=== PATIENT | female | born 1955 | race Caucasian/White ===

== ENCOUNTER 2022-01-03 12:58 | Emergency (ER) | payer OTHER, MEDICARE, SELFPAY ==
--- NOTE | ~2022-01-03 | XR_ITS ---
EXAMINATION: XR cervical spine 4-5V DATE: 01/03/2022 13:38 INDICATION: Neck pain. TECHNIQUE: 5 views of cervical spine were obtained. COMPARISON: None. FINDINGS: There is 2 mm retrolisthesis of C5 on C6. Vertebral body heights are normal. There is sever lizzie decreased disc height at C5-C6 and mildly decreased disc height at C6-C7. At C5-C6, there is kalani re bilateral uncovertebral joint osteoarthritis. There is multilevel mild facet joint osteoarthritis. There is mild central canal stenosis at C5-C6 and C6-C7. No prevertebral soft tissue swelling. There is mild scarring at the lung apices. IMPRESSION: 1. Severe cervical spondylosis. Reviewed, dictated and finalized at location A.
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
[2022-01-03 13:09] VITALS: BP 123/67; PULSE 81; RESP 16; TEMP 37.2; O2SAT 100
== END 2022-01-03 14:14 | disposition home or self-care (01) ==
PROVIDERS: Emergency Provider Nurse Practitioner; PCP Internal Medicine
DX: M54.2 Cervicalgia (principal); M25.512 Pain in left shoulder; M25.511 Pain in right shoulder; V43.52XA Car driver injured in collision with other type car in traffic accident, initial encounter; Z85.820 Personal history of malignant melanoma of skin
CPT/HCPCS: 72050; 99213; G0463

== ENCOUNTER 2024-07-04 12:09 | Outpatient (CLI) | payer MEDICARE, SELFPAY ==
--- NOTE | ~2024-07-04 | XR_ITS ---
EXAMINATION: XR chest 2V DATE: 07/04/2024 12:18 INDICATION: Chest congestion and 2 weeks of worsening cough TECHNIQUE: PA and lateral views of the chest were obtained. COMPARISON: Chest radiograph dated 10/31/2007 FINDINGS: Moderate biapical pleural-parenchymal scarring. Mild hyperexpansion lungs with increased retrosternal clear space. No focal airspace opacities, pulmonary edema, pleural effusion or pneumothorax. The car diomediastinal silhouette is normal. Mild S-shaped curvature of the thoracic spine with mild spondylo sis. IMPRESSION: 1. Mild hyperexpansion lungs suggestive but not diagnostic of COPD. 2. Moderate biapical pleural-parenchymal scarring. No acute cardiopulmonary disease. Reviewed, dictated and finalized at location A. MAINTENANCE IMPRESSION: 1. Mild hyperexpansion lungs suggestive but not diagnostic of COPD. 2. Moderate biapical pleural-parenchymal scarring. No acute cardiopulmonary dis ease.
== END 2024-07-04 12:10 | disposition home or self-care (01) ==
PROVIDERS: PCP Clinical Nurse Specialist; Visit Provider Clinical Nurse Specialist
DX: J92.9 Pleural plaque without asbestos (principal); J98.4 Other disorders of lung; Z87.39 Personal history of other diseases of the musculoskeletal system and connective tissue
CPT/HCPCS: 71046

== ENCOUNTER 2024-07-14 12:31 | Emergency (ER) | payer MEDICARE, SELFPAY ==
--- NOTE | 2024-07-14 12:31 | ED.URI ---
HPI - URI/Sore Throat General Chief Complaint: Upper Respiratory Infection Stated Complaint: COUGH/TIGHT CHEST/SOB Time Seen by Provider: 07/14/24 12:31 Source: patient Mode of arrival: ambulatory Limitations: no limitations History of Present Illness HPI Narrative: patient is a 68-year-old female who presents with cough, chest congestion and shortness of breath with exertion. Patient was seen 07/04 and was given Augmentin , albuterol and Flonase. patient states symptoms are not improving even after full course of antibiotics. States she was unable to use the inhaler because it made her feel worse. states she has been taking the Flonase but it is also not working. Related Data Home Medications ?Medication ?Instructions ?Recorded ?Confirmed ?Last Taken ?Type multivitamin 1 tablet PO DAILY 05/07/20 07/14/24 Unknown History hydroxychloroquine 200 mg tablet 200 mg PO DAILY 07/04/24 07/14/24 Unknown History (Plaquenil) Allergies Allergy/AdvReac Type Severity Reaction Status Date / Time Penicillins Allergy Headache Verified 07/14/24 12:40 Review of Systems Review of Systems: All systems reviewed & are unremarkable except as noted in HPI and below Constitutional: Constitutional: Denies chills, Denies fatigue, Denies fever(s), Denies headache(s), Denies malaise and Denies weakness Eyes: Eyes: Denies blurry vision, Denies itchy eyes and Denies loss of vision ENT: Denies otalgia, Denies headache(s), Reports nasal congestion, Denies sinus pain and Denies sore throat Cardiovascular: Cardiovascular: Denies chest pain, Denies irregular heart rhythm and Denies dyspnea Respiratory: Respiratory: Reports chest congestion, Reports cough and Denies dyspnea Gastrointestinal: Gastrointestinal: Denies abdominal pain, Denies diarrhea, Denies nausea and Denies vomiting Musculoskeletal: Musculoskeletal: Denies back pain, Denies myalgias and Denies arthralgias Integumentary/Breasts: Skin/Breast: Denies pruritus and Denies rash Neurologic: Denies headache(s), Denies loss of vision and Denies weakness Psychiatric: Psychiatric: Reports no additional psychiatric complaints Endocrine: Endocrine: Denies fatigue Allergic/Immunologic: Allergic/Immunologic: Denies itchy eyes PMFSH Past Medical History Medical History Vertigo Peripheral neuropathy Allergies Depression with anxiety JAMIE positive Melanoma Anxiety Surgical History Surgical History History of removal of skin mole History of eye surgery History of hysterectomy History of skin surgery melanoma removal 1995, 2000 Family History Family History Grandparent Family history of cardiovascular disease Social History Social History Social History: caffeine-coffee 2 cups daily Smoking status: Never smoker Alcohol intake: never Substance use: never Substance use type: does not use Do You Feel Safe in your Home?: Yes Lack of Transportation: No Lack of Food: Never True Current Housing: I Have Housing Concerned About Future Housing: No Difficulty Paying Gas/Electric Bills: No Difficulty Paying for Meds: No Currently Unemployed: No Education: High School Diploma/GED Difficulty w/ Childcare or Family Care: Decline to Answer Comments At time of signature, agree with nursing past medical, surgical, social and family history. There is no relevant family history pertinent to the presenting complaint. Exam Const: General: cooperative, healthy appearing, comfortable, no acute distress and well nourished Nutritional Appearance: well nourished Orientation/consciousness: patient oriented x3 Limitations: no limitations HENMT: Head: normal to inspection, normocephalic and atraumatic Ears: hearing grossly normal bilaterally, external ears normal, TM's normal bilaterally, EAC's normal and no periauricular adenopathy Face/Nose/Sinus: Normal external nose present, Abnormal mucous membranes and turbinates present erythematous bilateral and diffuse, normal facial exam, sinuses nontender and face symmetric Face and sinus: normal facial exam, sinuses nontender and face symmetric Mouth: Yes Normal oral and palatal mucosa present, Yes lip normal, Yes tongue normal, Yes Normal salivary glands and ducts present, Yes oropharynx normal and Yes moist mucous membranes Teeth and gingiva: dentition normal Throat: posterior oropharynx normal, tonsils normal and uvula midline Eyes: General: appearance normal, both eyes and all related structures Alignment and Position: alignment normal and position normal Periorbital: periorbital findings normal Eyelids: eyelids normal Pupils: Equal, round and reactive pupils present Neck: Neck: normal visual inspection, full ROM, no lymphadenopathy and supple Chest: Chest palpation & inspection: normal inspection of the chest and normal palpation of entire chest wall Resp: Effort & Inspection: normal respiratory effort and able to speak in complete sentences Auscultation: clear to auscultation bilaterally, no crackles, no rales, no rhonchi and no wheezes Cardio: Rate: regular rate Rhythm: regular rhythm Heart sounds: S1 normal heart sound present and S2 normal heart sound present GI: Inspection: normal to inspection Skin: General skin exam: normal color and no rashes or lesions noted Neuro: General: patient oriented x3 and moves all extremities Cranial nerves: Yes Equal, round and reactive pupils present Speech: normal speech Gait exam (Neuro): Normal gait present Extrem: General: normal to inspection, full ROM and no edema Psych: Appearance: grossly normal and well kempt Mental Status: mental status grossly normal Speech and movement: Normal speech and movement present Affect: normal affect Attitude: cooperative Thought process: Normal thought process present Course Course Emergency Course: Discharge instructions reviewed with patient, as well as provided in writing per nursing staff. The instructions also include specific and strict return/GO TO THE ER as well as f/u information. All questions have been answered, and the patient deny any further questions with discharge and discharge plan. Portions of this record may have been created with voice recognition software Level of Care: Express Care Visit Vital Signs Vital signs: Vital Signs Temperature 36.9 C 07/14/24 12:48 Pulse Rate 86 07/14/24 12:48 Respiratory Rate 16 07/14/24 12:48 Blood Pressure 148/86 H 07/14/24 12:48 Pulse Oximetry 100 07/14/24 12:48 Temperature 36.9 C 07/14/24 12:48 Pulse Rate 86 07/14/24 12:48 Respiratory Rate 16 07/14/24 12:48 Blood Pressure 148/86 H 07/14/24 12:48 Pulse Oximetry 100 07/14/24 12:48 Reviewed MDM - URI/Sore Throat MDM Narrative Medical decision making narrative: Patient has pulmonary function test scheduled for . Pt well hydrated appearing, in no respiratory distress, hemodynamically stable. Recommend supportive care. The patient is stable at time of discharge the clinical impression was discussed and the patient was given the opportunity to ask questions, which were addressed as completely as possible given the information available at present. Anticipatory guidance and return to care precautions were discussed and the importance of primary care follow-up was stressed and encouraged. The patient voiced understanding of the plan, indications to return, and the need for follow-up. Differential diagnosis considered: Bronchitis, Mcfarland virus, strep pharyngitis, allergic rhinitis, upper respiratory tract infection, sinusitis, rhinosinusitis, nasopharyngitis. viral pharyngitis, otitis media, otitis externa, otitis effusion, foreign body, cerumen impaction, viral syndrome, and influenza.? Exam findings show no acute concerns or changes; patient is non-toxic appearing and is in no distress.? Patient is appropriate for outpatient treatment and follow-up.? Medical Records Attestation: I reviewed the patient's medical records. Imaging Data Radiologist's impression: CHEST RADIOGRAPH, PA AND LATERAL CLINICAL HISTORY: cough, SOB x 3 wks, non smoker . COMPARISON: 07/04/2024 TECHNIQUE: PA and lateral views of the chest. FINDINGS The cardiomediastinal silhouette is unremarkable. Biapical scarring, unchanged. Hyperinflation is also noted. The remainder of the lungs are clear. IMPRESSION: Biapical scarring, without focal infiltrate or effusion. Discharge Plan Discharge Clinical Impression: Bronchitis Patient Disposition: Home, Self-Care Condition: Stable Instructions: Acute Bronchitis (ED) Additional Instructions: Take steroids Per package instructions. Use Tessalon Perles as needed for cough. Other symptomatic treatments include: -Alternate Tylenol and Motrin per package directions for fever or pain: Tylenol 650-1000mg by mouth every 4-6 hours. Do not exceed 4000mg in 24 hours. Advil (Ibuprofen) 600 mg by mouth every 6 hours. Do not exceed 2400mg in 24 hours. 8 AM: Tylenol 11 AM: Ibuprofen 2 PM: Tylenol 5 PM: Ibuprofen 8 PM: Tylenol 11 PM: Ibuprofen 2 AM: Tylenol 5 AM: Ibuprofen -Antihistamine medication such as Benadryl at night and Zyrtec/Claritin/Ana during the day can help improve symptoms. -Use Flonase twice a day for 5 days then daily to help reduce the inflammation and dry up your sinuses. -You can also use Sudafed or Mucinex. Be sure to drink plenty of water with these medications at least 8 ounces with every dose and it is important to drink 8 to 10 glasses of water per day. Water is a natural decongestant -Eat and drink things that are easy to swallow, like tea or soup, or popsicles. -Oral rinses such as: Salt water gargles and/or may use topical anesthetic (eg. Chloraseptic spray) or lozenges to relieve dryness or throat pain). -Frequent hand washing or hand meal room hand is one of the best ways to prevent spread of infection. -Using a vaporizer or humidifier at night will also help thin secretions and help with coughing up phlegm. Call your Primary Care Doctor and make a follow-up appointment in 3 days. If your cough worsens, you develop a fever greater than 103, you develop shaking chills, a fast heartbeat, trouble breathing and/or feel you are are breathing much faster than usual, call your Primary Care Doctor or go to the ER. Your blood pressure was elevated above 120/80 today at Urgent Care. This puts you above the threshold for follow up visit with a primary care provider. High blood pressure does not usually cause any symptoms, however it may lead to kidney failure, stroke, heart disease just to name a few if untreated . Many people are anxious when seeing a provider or nurse. As a result, you are not diagnosed with hypertension at this time unless your blood pressure is persistently high at two office visits at least one week apart. Some things that can help lower blood pressure are lifestyle modifications, such as light exercise, decreased salt in diet, and weight loss. It is important to follow up with a PCP about this within 1 week. Patient Language: Wallisian Prescriptions: New benzonatate 100 mg capsule 100 mg PO BID PRN (Reason: cough) Qty: 14 0RF methylprednisolone [Medrol (Ugo)] 4 mg tablets,dose pack See Rx Instructions .ROUTE .COMPLEX Qty: 21 0RF Rx Instructions: orally per package directions No Action ibuprofen 600 mg tablet 600 mg PO QID PRN (Reason: pain) Qty: 30 0RF multivitamin Tablet 1 tablet PO DAILY hydroxychloroquine [Plaquenil] 200 mg tablet 200 mg PO DAILY fluticasone propionate [Flonase Allergy Relief] 50 mcg/actuation spray,suspension 1 spray intranasal Q12H Qty: 16 0RF Rx Instructions: administer into each nostril alprazolam 0.25 mg tablet 0.25 mg PO TID PRN (Reason: anxiety) Qty: 90 1RF Follow-up/Referrals: Michela Rivera WARP PLACER [Primary Care Provider] - 3 Days Time of Disposition: 13:35
[2024-07-14 12:48] VITALS: BP 148/86; PULSE 86; RESP 16; TEMP 36.9; O2SAT 100
== END 2024-07-14 13:39 | disposition home or self-care (01) ==
PROVIDERS: Emergency Provider Nurse Practitioner Family; PCP Nurse Practitioner
DX: J40 Bronchitis, not specified as acute or chronic (principal); G62.9 Polyneuropathy, unspecified; F41.9 Anxiety disorder, unspecified; Z85.820 Personal history of malignant melanoma of skin
CPT/HCPCS: 71046; 99213; G0463

== ENCOUNTER 2024-07-20 14:35 | Outpatient (CLI) | payer MEDICARE, SELFPAY ==
--- OUTSIDE RECORDS SUMMARY | 2024-07-20 15:55 | XMS_ITS | Continuity of Care Document ---
Author Organization [facility] Address [address] [place] [address] Phone Care Team Providers Care Oil Burner Servicer And Installer Name Role Phone Marin Ruiz MD Unavailable Unavailable Allergies, Adverse Reactions, Alerts Substance Reaction Status Criticality No Known Drug Allergies Active No I nformation Medications Medication Instructions Dosage Effective Dates (start - stop) Status Comments alprazolam 0.5 mg tablet take 1 tablet by oral route 3 times every day 0.5 MG - No Longer Active Procedures Procedure Date X-ray exam knee, 1 or 2 views 8 X-ray exam both knees, standing 018 X-ray exam knee, 1 or 2 views 8 Independent Medical Examination [facility] Prolonged serv, w/o contact, 1st hr Scheduling Rescheduling Medical Testimon y Rende Advance Directives Directive Yes / No Effective Date File Name No Information Encounters Encounter Description Practice Location Reason(s) For Visit Diagnoses Date Provider Providers Copied on Encounter Independent Medical Examination [facility], [address], [id number], [place] tel:[phone] [facility] right knee (chief complaint) Pain in left kneePain in right knee 8 Sara Funes. [address], [place], [place], [id number], [place]. tel:[phone] [facility], [address], [place], [place], [id number], [place] tel:[phone] [facility] No Information 0 9 Administrative Provider. [address], [place], [place], [id number], [place]. tel:[phone] Referring Provider: Tono Guillaume, [address], [place], [address] . tel:[phone] Family History Family Member Type Diagnosis Age At Onset Problem (finding) Family history of cance r of colon Mother Problem (finding) Arthritis Father Problem (finding) Cardiovascular disease Payers Payer name Insurance type Covered alliance party ID Riccardo anthony(s) [employer] [id number] Social History Type Description Quantity Date Captured Comments Alcohol Use Details Unknown Caffeine Use Details Unknown Tobacco Use Status Current non-smoker 18 Smoking Status Never smoker Non-Smoking Tobacco Use Details : No Details Available : No Details Available Sex Female Vital Signs Date / Time: Height Weight BMI Pulse Rate Blood Pressure Temperature Respiratory Rate Body Surface Area Head Circumference Head Circ. Percentile Wt./Sundeep. Percentile BMI percentile Pulse Ox Inhaled Ox 11:14 AM 66.00 in 56.699 kg (125.00 lbs) 20.1 8 kg/m eter (2) Chief Complaint And Reason For Visit From encounter dated '07/21/2017 11:00'. right knee (chief complaint). Description: Kaela presents to the office for right knee complaints. Reason For Referral Reason For Referral No Information Plan Of Treatment Date Type Action Status Referral Ordered: X-ray exam knee, 1 or 2 views LT ordered Referral Ordered: X-ray exam both knees, standing ordered Referral Ordered: X-ray exam knee, 1 or 2 views RT ordered History Of Present Illness Encounter Date Complaint History Of Prese nt Illness right knee Kaela presents to the office for right knee complaints. Functional Status Date Functional Assessmen t No Information Instructions Date Instruction Additional Infor mation No Information Assessments Type Assessment Date assessment Pain in left knee assessment Pain in right knee Patient Care Teams Name Effective Dates (start - stop) Status Members No Information
--- OUTSIDE RECORDS SUMMARY | 2024-07-20 15:55 | XMS_ITS | Continuity of Care Document ---
Author Organization [facility] Address [address] [place] [address] Phone Care Team Providers Care Fiscal Accountant Name Role Phone O Rena HUERTAS, Isreal Unavailable Unavai lable Allergies, Adverse Reactions, Alerts Substance Reaction Status Criticality No Known Allergies Active No Inform ation Medications Medication Instructions Dosage Effective Dates (start - stop) Status Comments Mobic 15 mg tablet take 1 tablet by oral route every day - Active XANAX (unknown strength) Not Available - Active Procedures Procedure Date RADEX SPI LUMBOSAC 2/3 VIEWS OFFICE/OUTPATIENT VISIT NEW Advance Directives Directive Yes / No Effective Date File Name No Information Encounters Encounter Description Practice Location Reason(s) For Visit Diagnoses Date Provider Providers Copied on Encounter [facility] , [address], [place], [address], [place] tel:[phone] [facility] No Information [address] [place] [address], [place], [place], [address] . tel: [phone] OFFICE/OUTPAT IENT VISIT NEW [facility] , [address], [place], [address], [place] tel:[phone] [facility] [place] Low back pain [address] [place], [place], [place], [id number] . tel: [phone] Family History Family Member Type Diagnosis Age At Onset Father Problem (finding) Heart disease Mother Problem (finding) Arthritis Payers Payer name Insurance type Covered constitution party ID Riccardo anthony(s) [employer] EPO E2 OT [id number] Social History Type Description Quantity Date Captured Comments Alcohol Use Details Unknown Caffeine Use Details Unknown Tobacco Use Status No Information Smoking Status No Information Sex Female Chief Complaint And Reason For Visit No Information Reason For Referral Reason For Referral No Information Plan Of Treatment Date Type Action Status Referral Ordered: RADEX SPI LUMBOSAC 2/3 VIEWS ordered History Of Present Illness Encounter Date Complaint History Of Prese nt Illness No Information Functional Status Date Functional Assessmen t No Information Instructions Date Instruction Additional Infor mation Take medication as directed. Rel ated to Low back pain Continue home exercise program. Related to Low back pain Assessments Type Assessment Date No Information Patient Care Teams Name Effective Dates (start - stop) Status Members No Information
--- OUTSIDE RECORDS SUMMARY | 2024-07-20 15:55 | XMS_ITS ---
Author Organization [facility] As Re-[employer] [facility] Address [facility] [address] [facility] [address] [place] [address] Care Team Providers Care Audograph Operator Name Role Phone Ivory Peterson Unavailable [phone] Migration, Provider Unavailable Unavailable REASON FOR VISIT [facility] [place] Social History Sex Assigned At : Social History Observation Description Sex Assigned At Female Encounters Encounter Location Date Provider Diagnosis [facility] [employer] [facility] [address] [address] 10/02/2023 Provider Migration Plan Of Treatment No Information Progress Notes * SPRING GUERRERODOB: [birth year] (68 yo F)Acc No.[id number]:10/02/2023 Patient: Hamilton BEAUCHAMPSPRING GERONIMO :1955 A ge:67 Y S ex:Female Address:[address] [place] [address] Subjective: * Chief Complaints: * E MR-Kareem * Medical History: * Surgical History: * Hospitalization/Major Diagno stic Procedure: * Medications: Objective: * Vitals: * Physical Examination: Assessment: Plan: * Treatment: * Procedure Codes: * true * Date: Generated for Printi ng/Faxing/eTransmitting on: 0 07/20/2024 03:55 PM STATISTICIAN
--- OUTSIDE RECORDS SUMMARY | 2024-07-20 15:55 | XMS_ITS | Clinical Summary ---
Author Organization [facility] Address [address] [place] [address] Care Team Providers Care Carpet Binder Name Role Phone Unavailable Primary Care Provider Unavailabl e Social History Tobacco Use Types Packs/Day Years Used Date Smoking Tobacco: Never Assessed Comments Unknown Sex and Gender Information Value Date Recorded Sex Assigned at Not on file Legal Sex Female 5:12 PM CDT Gender Identity Not on file Sexual Orientation Not on file Plan of Treatment Health Maintenance Due Date Last Done Comments Colorectal Cancer Screening Colonoscopy (10 Years) 1955 Hepatitis C 10/14/1973 DTaP, Tdap and Td Vaccines ( 1 - Tdap) 10/14/1974 Mammogram Screening 1995 Zoster Vaccines (1 of 2) 10/14/2005 Dexa Scan (General) 10/14/2020 Pneumococcal Vaccine: 65+ Ye ars (1 of 1 - PCV) 10/14/2020 COVID-19 Vaccine ( - 2023-2 5 season) 2024 Influenza Adult (#1) 2024 RSV Immunization or 60+ Years (1 - 1-dose 75+ series) 10/14/2030 Meningococcal B Vaccine Aged Out No l onger eligible based on patient's age to complete this topic Meningococcal Vaccine Aged Out No fan miroslava eligible based on patient's age to complete this topic RSV Immunizations Under 20 Months Aged Out No longer eligible based on patient's age to complete this topic
--- OUTSIDE RECORDS SUMMARY | 2024-07-20 15:55 | XMS_ITS | Patient Health Record ---
Author Organization [facility] Address [address] [place] [address] Care Team Providers Care Machine Made Shoe Unit Worker Name Role Phone JuarezJolene latham Primary Care Provider [phone] Allergies No Known Allergies Reason For Referral No Information Medications Medication SIG (Take, Route, Frequency, Duration) Notes Start Date End Date Status Multivitamin otc Active Zinc otc Active Xanax 0.25 MG 1 tablet Orally Twic e a day as needed for severe anxiety for 30 days 12/25/2020 Active Magnesium OTC as needed fo r anxiety Active Vitamin D otc Active Problems Problem Type SNOMED Code ICD Code Onset Dates Problem Status W/U Status Risk Notes Problem Anxiety (02139999) Anxiety (F41.9) Active confirmed Problem Benzodiazepine dependence (970732277) Benzodiazepine dependence (F13.20) Active confirmed 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 [address] [place] [address] [id number] Kaela Abarca Self - patient is the insured 1 1 MEDICARE PART A [address] [place] [phone] [id number] Kaela Abarca Self - patient is the insured 1 Medical (General) History Medical History History ICD Code Neuropathy Surgical History Surgery Date(Month/Year) TOTAL HYSTERECTOMY
--- OUTSIDE RECORDS SUMMARY | 2024-07-20 15:55 | XMS_ITS | Referral Summary ---
Author Organization [facility] Address [address] [place] [address] Care Team Providers Care Bar Staff Name Role Phone Jay Jay Chiang MD Primary Care Provider [phone] Allergies No known active allergies Medications ALPRAZolam (XANAX) 0.5 mg tablet 02/14/2017 Active naproxen (NAPROSYN,ALEVE) 500 mg tablet TK 1 T PO Q 12 H PRN 0 01/08/2017 Active Active Problems Problem Noted Date Diagnosed Date History of melanoma 02/15/2017 Overview (02/15/2017): She has had 2 melanomas One was on her hip and one on her leg The last one was 2013 Liver lesion 02/15/2017 Overview (02/15/2017): Hx of lesion on her liver for over 5 years Social History Tobacco Use Types Packs/Day Years Used Date Smoking Tobacco: Never Smokeless Tobacco: Never Alcohol Use Standard Drinks/Week Comments No 0 (1 standard drink = 0.6 oz pur e alcohol) Personal Safety Answer Date Recorded Getting School Help Needed Not on file 07/30 Comments Unknown Sex and Gender Information Value Date Recorded Sex Assigned at Not on file Legal Sex Female 12:35 AM DELIVERY ASSOCIATE Gender Identity Not on file Sexual Orientation Not on file Last Filed Vital Signs Vital Sign Reading Time Taken Comments Blood Pressure 134/81 03/30/2017 2:34 PM DELIVERY ASSOCIATE Pulse 67 03/30/2017 2:34 PM DELIVERY ASSOCIATE Temperature 36.6 C (97.8 F) 02/15/2017 1:14 PM CDT Respiratory Rate 16 02/15/2017 1:14 PM CDT Oxygen Saturation - - Inhaled Oxygen Concentration - - Weight 55.4 kg (122 lb 2.2 oz) 03/30/2017 2:34 P M DELIVERY ASSOCIATE Height 167.6 cm (5' 6 ) 03/30/2017 2:34 PM DELIVERY ASSOCIATE Body Mass Index 19.71 03/30/2017 2:34 PM DELIVERY ASSOCIATE Plan of Treatment Not on file Insurance REPLACED BY [facility] [place] Care Teams Bar Staff Relationship Specialty Start Date End Date Jay Jay Chiang MD [address] [place] [address] PCP - General 09/18/16
--- OUTSIDE RECORDS SUMMARY | 2024-07-20 15:55 | XMS_ITS | Encounter Summary ---
Author Organization [facility] Address [address] [place] [address] Phone Care Team Providers Care Catering Staff Member Name Role Phone Jay Jay Chiang MD Primary Care Provider [phone] Encounter Details Date Type Department Care Team (Late st Contact Info) Description 02/23/2008 Orders Only [facility] Scanning, Provider Social History Tobacco Use Types Packs/Day Years Used Date Smoking Tobacco: Never Assessed Comments Unknown Sex and Gender Information Value Date Recorded Sex Assigned at Not on file Legal Sex Female 12:35 AM LINE LOCATOR Gender Identity Not on file Sexual Orientation Not on file documented as of this encounter Plan of Treatment Not on file documented as of this encounter Procedures Procedure Name Priority Date/Time Associated Diagnosis Comments SCAN - PATHOLOGY 02/23/2008 documented in this encounter Results * SCAN - PATHOLOGY (02/23/2008) us Provider Scanning Edited Result - Final documented in this encounter Visit Diagnoses Not on filedocumented in this encounter Care Teams Catering Staff Member Relationship Specialty Start Date End Date Jay Jay Chiang MD [address] [place] [address] [place] [address] PCP - General 09/18/16 documented as of this encounter
--- OUTSIDE RECORDS SUMMARY | 2024-07-20 15:55 | XMS_ITS ---
Author Organization [facility] As [facility] [facility] Address [facility] [address] [facility] [address] [place] [address] Care Team Providers Care Electronic System Engineer Name Role Phone Ivory Peterson Unavailable [phone] Migration, Provider Unavailable Unavailable REASON FOR VISIT [facility] Medications Medication SIG (Take, Route, Frequency, Duration) Notes Start Date End Date Status ALPRAZolam 0.5 MG Oral Ac tive ALPRAZolam 0.25 MG Oral A ctive LORazepam 0.5 MG Oral Act georges Clindamycin Phosphate 1% External Active Social History Sex Assigned At : Social History Observation Description Sex Assigned At Female Encounters Encounter Location Date Provider Diagnosis [facility] [address] [facility] [address] [place] [address] 10/03/2023 Provider Migration Plan Of Treatment No Information Progress Notes * SPRING GUERRERODOB: [birth year] (68 yo F)Acc No.[id number]:10/03/2023 Patient: Hamilton BEAUCHAMPSPRING GERONIMO :1955 A ge:67 Y S ex:Female [facility] [address] Subjective: * Chief Complaints: * E MR-Kareem * Medical History: * Surgical History: * Hospitalization/Major Diagno stic Procedure: * Social History: M igrated Social History: M igrated Social History: Tobacco Years: Never smoker 01/01/2021. * Medications: T akingALPRAZolam 0.25 MG Tablet Oral ALPRAZolam 0.5 MG Tablet Oral Clindamycin Phosphate 1% Lotion External LORazepam 0.5 MG Tablet Oral Taking ALPRAZolam 0.25 MG Tablet Oral Taking ALPRAZolam 0.5 MG Tablet Oral Taking Clindamycin Phosphate 1% Lotion External Taking LORazepam 0.5 MG Tablet Oral Objective: * Vitals: * Physical Examination: Assessment: Plan: * Treatment: * Procedure Codes: * true * Date: Generated for Tonio sears/Rosangela/Jocelyne on: 0 07/20/2024 03:55 PM CREDIT REVIEW OFFICER
--- OUTSIDE RECORDS SUMMARY | 2024-07-20 15:55 | XMS_ITS | Clinical Summary ---
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 (HCC) Family History Medical History Relation Name Comments Heart disease Father Relation Name Status Comments Father Alive Mother Alive Social History Tobacco Use Types Packs/Day Years [...] on file Legal Sex Female 12:35 AM SHIPPING ASSISTANT Gender Identity Not on file Sexual Orientation Not on file Obstetrics History Last Filed Vital Signs Vital Sign Reading Time Taken Comments Blood Pressure 134/81 03/30/2017 2:34 PM SHIPPING ASSISTANT Pulse 67 03/30/2017 2:34 PM SHIPPING ASSISTANT Temperature 36.6 C (97.8 F) 02/15/2017 1:14 PM CDT Respiratory Rate 16 02/15/2017 1:14 PM CDT Oxygen Saturation - - Inhaled Oxygen Concentration - - Weight 55.4 kg (122 lb 2.2 oz) 03/30/2017 2:34 P M SHIPPING ASSISTANT Height 167.6 cm (5' 6 ) 03/30/2017 2:34 PM SHIPPING ASSISTANT Body Mass Index 19.71 03/30/2017 2:34 PM SHIPPING ASSISTANT Plan of Treatment Not on file Insurance [facility] HEALTHCARE CHOICE [place] Care Teams Tattoo And Body Artist Relationship Specialty Start Date End Date Jay Jay Chiang MD [address] [place] [address] [place] [address] PCP - General 09/18/16
--- OUTSIDE RECORDS SUMMARY | 2024-07-20 15:55 | XMS_ITS | Data Portability ---
Author Organization [facility] Address [address] [place] [address] [place] [address] Care Team Providers Care Cultured Marble Products Maker Name Role Phone ANARCMELANY Primary Care Provider Assessment Encounter Date Assessment Date Assessment LastModified by Organization Details LastModified Time 11/11/2022 11/11/2022 Annual gynecological exam performed. Patient will come back in a year unless there are new symptoms. Not available 11/11/2022 12:19:39 Plan of Treatment Reminders Order Date Submit Date Provider Last Modified By Organization Details Last Modified Time Details Appointments None recorded. Lab None recorded. Referral None recorded. Procedures None recorded. Surgeries None recorded. Imaging DEXA, axial skeleton + vertebral fracture assessment 2022 [address] [facility], [address], [place], [address], 12:59:00 Medication Orders None recorded. Patient TargetsNo targets recorded. Patient InstructionsNo instructions recorded. Reason for Referral None Reported. Procedures Surgical History Date Name Laterality Status Provider Name and Address Organization Details Recorded Time Total Hysterectomy completed Kym rBody [facility] 11/11/2022 12:23:44 Breast Surgery completed Kym Brody [facility] 11/11/2022 12:24:06 Imaging Results None recorded. Procedure Notes None recorded. Medical Equipment None Reported. Allergies No known drug allergies Medications Name Sig Start Date Stop Date Status Note LastModified by Organization Details LastModified Time tizanidine 2 mg tablet TAKE 1 TABLET BY MOUTH THREE TIMES DAILY NEEDED FOR MUSCLE SPASMS 11/11 completed Not Available Not Available Not Available alprazolam 0.25 mg tablet TAKE 1 TABLET BY MOUTH TWICE DAILY active Not Available Not Available No t Available ibuprofen 600 mg tablet TAKE 1 TABLET BY MOUTH FOUR TIMES DAILY NEEDED FOR PAIN 11/11 completed Not Available Not Available Not Available diazepam 5 mg tablet TAKE 1 TABLET BY MOUTH TWICE DAILY NEEDED 11/11 completed Not Available Not Available Not Available clindamycin 1 % lotion APPLY TO THE AFFECTED AREA ON EYELIDE DAILY 11/11 completed Not Available Not Available Not Available Vitals Date Recorded Body height Body mass index (BMI) Body weight Provider Name and Address Organization Details Last Updated DateTime 11/11/2022 167.64 cm 19.9 kg/m2 80897.86 g Kym Brody [facility] 11/11/2022 12:20:15 Date Recorded Systolic blood pressure Diastolic blood pressure Provider Name and Address Organization Details Last Updated DateTime 11/11/2022 130 mm[Hg] 77 mm[Hg] Nilda Paul, [facility]- [address], [place], [address], [facility] 11/11/2022 12:37:36 Social History Question Answer Notes LastModified by Organizat ion Details LastModified Time Tobacco Smoking Status Never Smoker Kym Brody [facility], [facility] 11/11/2022 12:23:26 What Is Your Level Of Alcohol Consumption? None Information not available 11/11/2022 In The 14 Days Before Symptom Onset, Have You Had Close Contact With A Laboratory-confirm ed COVID-19 While That Case Was Ill? No Information n ot available 11/11/2022 In The 14 Days Before Symptom Onset, Have You Had Close Contact With A Person Who Is Under Investigation For COVID-19 While That Person Was Ill? No Information not available 11/11/2022 Have You Been To An Area Known To Be High Risk For COVID-19? No Information not available 11/11/2022 Do You Use Any Illicit Or Recreational Drugs? No Information not available 11/11/2022 Sex: Unknown Functional Status None recorded. Mental Status None recorded. Family History Relationship Description Onset Age of this Age Resolved Age Notes LastModified by Organization Details LastModified Time Mother Laura [email or web address] Not available 2022 12:23:00 Mother Hypertensive disorder Not available 2022 12:23:13 Father Hypercholest erolemia Not available 2022 12:23:00 Father Hypertensive disorder Not available 2022 12:23:13 Brother Hypercholest erolemia Not available 2022 12:23:00 Brother Hypertensive disorder Not available 2022 12:23:13 Medical History Condition Response Allergies (Food, seasonal, environmental ) N Other Y Breast Cancer N Drug/Latex Allergies/Reactions N Blood Transfusion N Dermatologic Disorders Y Lung Disease N Defects or Inherited Disease N Breast Problem Y Gestational Diabetes N Hematologic disorders N Anesthesia Complications N History of STI N Deep Vein Thrombosis N Polycystic ovary syndrome N Anxiety Disorder Y Autoimmune disease N Arthritis N Infertility N Polyps N Acid Reflux (GERD) N History of abnormal pap N Cancer N Stroke N Varicosities N Neurologic/Epilepsy N Endometriosis Y High Cholesterol N Headaches N Fibromyalgia N Kidney Disease N Heart Problems N Kidney or Bladder Problems N Thyroid Problems N GI Problems N Eating Disorder N Anemia N Art (IVF or FET) N Psychiatric Illness Y Ovarian Cancer N Diabetes N Pulmonary (TB, Asthma) N Hepatitis/Liver Disease N No Past Medical History N Eczema N Urinary Tract Infection N Abuse/Domestic Violence N Asthma N Trauma/Violence N Depression/ depression N Heart Disease N Pre-Eclampsia N Hypertension N Osteoporosis Y Thrombophilias N Gynecological History Statement/Question Response Abnormal Pap N Date of Last Mammogram Date of Last Colonoscopy Menses Monthly N HPV Vaccine N Date of Last Pap Smear Current Control Method Menopause LMP Unknown Obstetrics History GPAL:G 2 P 2 0 0 1 Type Value Full Term 2 Living 1 Total 2 Past Encounters Encounter ID Performer Location Encounter Start Date Encounter Closed Date Diagnosis/Indication Diagnosis SNOMED-CT Code Diagnosis ICD10 Code Diagnosis Note [id number] Nilda Paul [facility] [address] [address] 11/11/2022 11:45:49 11/11/2022 12:59:00 Gynecologic examination 69986856 Z01.419 Take Calcium with Vitamin D 12-1500mg daily. Do monthly self breast exams. It is advised to get annual flu shot in the fall and she could obtain at [facility] or [facility] care clinic. If you haven't received the Tdap vaccine in the last 10 years you should obtain one as well. Have mammogram yearly, bone density every 2-3 years and colonoscop y every 5-10 years depending on findings and history. Engage in daily exercise of low impact aerobic exercise 45-60 minutes 4-5 times weekly. Avoid tobacco and illicit drugs as well as using moderation with alcohol intake less than 1-2 8 oz beverages daily. This lifestyle behavior pattern will lead to less health conditions and longer life span. If BMI greater than 25 weight watchers or dietary consult advised. Questions have been answered. Patient appears to understand instructio ns, but if you have any further questions call or respond to this email Pap/hpv USPSTF recommends against screening for cervical cancer in women older than 65yo, those who've had a hysterecto my for non-cancer indication s, & who have had adequate prior screening & are not otherwise at high risk for cervical cancer. Pelvic/ski n check still recommende d due to Hx of melanoma right hip and top of Left thigh 20yrs ago; see's Derm yearly. STD Screen -declined Genetic Screen discussed Colon Screen UTD PCP-Cologu korina Dexa Screen ordered Routine Labs UTD PCPMammo UTD PCP Postmenopa usal osteoporosis [id number] M81.0 Health Concerns Section Related Observation LastModified by Organization Detai ls LastModified Time None Recorded Concern Status LastModified by Organization Details LastModified Time None Recorded Advance Directives Directive None Recorded Payers Encounter Date Sequence Insurance Name Policy Number Policy White Covered Member ID White Member ID Guarantor Name 11/11/2022 1 [employer] - PRIME (MEDICARE REPLACEMENT/ ADVANTAGE - HMO) [id number] Kaela Abarca [id number] Kaela Abarca Notes Date Note Type Note Provider Name and Address Organization Details Recorded Time 11/11/2022 text/html Annual Beet Worker Post-MenopausalRe ported bypatient.[place] alfredo Symptoms:no menopausal symptoms; normal vaginal lubrication Vaginal Bleeding:history of menopause having occurred; no history of post menopausal bleeding Urinary Symptoms:no hematuria; no incontinence; no nocturia; no urinary frequency Vulva:no genital lesion; no vulvar atrophy Vagina:normal vaginal discharge; no vaginal atrophy Breast:no breast lump; no nipple discharge; no breast pain Sexual Complaints:no sexual complaints Psychological Symptoms:no depression; no anxiety Preventive Measures:encourag e regular mammograms starting age 40; encourage self breast examination; encourage regular exercise; encourage no tobacco use; mammogram performed within the past year; history of recent colonoscopy; needs to schedule bone density Nilda Paul [facility]- [address], [place], [address], [facility] 11/11/2022 12:47:11 OBGyn Episode Ob Episode Information Episode Created Date Number of Fetuses Patient Bloodtype Patient rh Status Prepregnancy Weight lbs Domestic Partner Domestic Partner Phone Father Name Shucker Status 11/12/19 23 1 CLOSED Fetus Data First Name Last Name Admitted to NICU Weight (g) Sex Living Outcome Pediatric Complications Fetus ID Race Codes Race Delivery Type Full Term Vaginal Delivery Kelvin Calculation Initial Kelvin Date Initial Exam Date Initial Exam Provider Initial Ultrasound Date Last Menstrual Period Date Ultra Sound Weeks Gestation 0 Eighteen To Twenty Week Kelvin Update Ultra Sound Date Fundal Height At Umbil Quickening Date Ultra Sound Latest Weeks Gestation Final Kelvin Confirmed By Final Kelvin Confirmed Date Final Kelvin Date Ultra Sound Latest Days Gestation 0 0 Menstrual History Last Menstrual Date Menses Monthly On Bcp Conception Prior Menses Frequency Hcg Plus Date Menarche Onset Age Delivery Information Delivery Date Delivery Type Labor Anesthesia Weeks Gestation Incision Type Labor Labor Length Hrs Delivered By Post Complications Tubal Sterilization Discharge Date Comments 6 41 Discharge Information Feeding Method Contraceptive Method Maternal HG B and HCT Levels Ob Episode Information Episode Created Date Number of Fetuses Patient Bloodtype Patient rh Status Prepregnancy Weight lbs Domestic Partner Domestic Partner Phone Father Name Shucker Status 11/12/19 23 1 CLOSED Fetus Data First Name Last Name Admitted to NICU Weight (g) Sex Living Outcome Pediatric Complications Fetus ID Race Codes Race Delivery Type Full Term Kelvin Calculation Initial Kelvin Date Initial Exam Date Initial Exam Provider Initial Ultrasound Date Last Menstrual Period Date Ultra Sound Weeks Gestation 0 Eighteen To Twenty Week Kelvin Update Ultra Sound Date Fundal Height At Umbil Quickening Date Ultra Sound Latest Weeks Gestation Final Kelvin Confirmed By Final Kelvin Confirmed Date Final Kelvin Date Ultra Sound Latest Days Gestation 0 0 Menstrual History Last Menstrual Date Menses Monthly On Bcp Conception Prior Menses Frequency Hcg Plus Date Menarche Onset Age Delivery Information Delivery Date Delivery Type Labor Anesthesia Weeks Gestation Incision Type Labor Labor Length Hrs Delivered By Post Complications Tubal Sterilization Discharge Date Comments 7 40 after Discharge Information Feeding Method Contraceptive Method Maternal HG B and HCT Levels
--- OUTSIDE RECORDS SUMMARY | 2024-07-20 15:55 | XMS_ITS | Clinical Summary ---
Author Organization [facility] Address [address] [place]: Epic Prelude ADT [place] [address] Care Team Providers Care Corporate Account Executive Name Role Phone Unavailable Primary Care Provider Unavailabl e Social History Tobacco Use Types Packs/Day Years Used Date Smoking Tobacco: Never Assessed Comments Unknown Sex and Gender Information Value Date Recorded Sex Assigned at Not on file Legal Sex Female 9:48 PM CDT Gender Identity Not on file Sexual Orientation Not on file Plan of Treatment Health Maintenance Due Date Last Done Comments DTAP/TDAP/TD VACCINES (1 - Tdap) 10/14/1974 BREAST CANCER SCREENING 1995 COLORECTAL SCREENING 10/14/2000 Colorectal Cancer Screening 10/14/2000 FIT-DNA Q 3 years 10/14/2000 FIT/FOBT Q 1 year 10/14/2000 Flex Sig/CT Colonography Q 5 years 10/14/2000 PNEUMOCOCCAL VACCINE 50+ YEARS (1 of 1 - PCV) 10/15/19 06 ZOSTER VACCINE (1 of 2) 10/14/2005 OSTEOPOROSIS SCREENING 10/14/2020 INFLUENZA VACCINE (#1) 2023 RSV VACCINE (60+ or ) (1 - 1-dose 75+ series) 10/14/2030
--- OUTSIDE RECORDS SUMMARY | 2024-07-20 15:56 | XMS_ITS | Referral Summary ---
Author Organization [facility] Address [address] [place] [address] Care Team Providers Care Veterinarian Assistant Name Role Phone Unavailable Primary Care Provider Unavailabl e Source Comments [facility],non-owned Affiliates and Associated Physician Practices is amultiple site organization consisting of ambulatory clinics and hospital sitesin [place], [place], [place] and [place]. This disclosure is being madepursuant to the Care Everywhere program and may not contain all information available regarding this patient. Last updated 18.[facility] [employer] Allergies No known active allergies Medications * Be aware that medications may not be up to date on this document. Alwaysverify current medications with the patient. Medication Sig Dispensed Refills Start Date End Date Status ALPRAZolam (XANAX) 0.5 MG tablet 02/14/2017 Active clindamycin (Cleocin) 1 % lotionIndications:Fol liculitis Apply to affected area on eyelid daily. 30 day supply. 60 mL 2 08/11/2022 Active Active Problems Problem Noted Date Diagnosed Date Liver lesion 02/15/2017 Overview (05/06/2020): Hx of lesion on her liver for over 5 years Other specified disorders of nose and nasal sinu ses 05/27/2015 Rhinorrhea 05/27/2015 Other specified disorders of ear, unspecified ea r 07/06/2012 Sensorineural hearing loss of both ears 07/06/19 13 Tinnitus 07/06/2012 History of melanoma 12/22/2010 Nevus, non-neoplastic 12/22/2010 Benign neoplasm of skin 12/22/2010 Edge angioma 12/22/2010 Immunizations Name Administration Dates Next Due INFLUENZA VACCINE 02/13/2021 Social History Tobacco Use Types Packs/Day Years Used Date Smoking Tobacco: Never Smokeless Tobacco: Never Tobacco Cessation:Counseling Given: Not Answered Alcohol Use Standard Drinks/Week Comments Yes 0 (1 standard drink = 0.6 oz pur e alcohol) Sex and Gender Information Value Date Recorded Sex Assigned at Not on file Gender Identity Not on file Sexual Orientation Not on file Plan of Treatment Not on file
--- OUTSIDE RECORDS SUMMARY | 2024-07-20 15:56 | XMS_ITS | Patient Health Summary ---
Author Organization [facility] Address [address] [place] [address] Care Team Providers Care Psychiatric Social Worker Supervisor Name Role Phone Unavailable Primary Care Provider Unavailabl e Note from [facility],non-owned Affiliates and Associated Physician Practices is amultiple site organization consisting of ambulatory clinics and hospital sitesin [place], [place], [place] and [place]. This disclosure is being madepursuant to the Care Everywhere program and may not contain all information available regarding this patient. Last updated 18.[facility] Allergies No known active allergies Medications * Be aware that medications may not be up to date on this document. Alwaysverify current medications with the patient. * ALPRAZolam (XANAX) 0.5 MG tablet(Started 02/14/2017) * clindamycin (Cleocin) 1 % lotion(Started 08/11/2022) Apply to affected area on eyelid daily. 30 day supply. 2 refills by 08/11/2023 Active Problems Problem Noted Date Diagnosed Date Liver lesion 02/15/2017 Other specified disorders of nose and nasal sinu ses 05/27/2015 Rhinorrhea 05/27/2015 Other specified disorders of ear, unspecified ea r 07/06/2012 Sensorineural hearing loss of both ears 07/06/19 13 Tinnitus 07/06/2012 History of melanoma 12/22/2010 Nevus, non-neoplastic 12/22/2010 Benign neoplasm of skin 12/22/2010 Edge angioma 12/22/2010 Immunizations * INFLUENZA VACCINE(Given 02/13/2021) Social History Tobacco Use Types Packs/Day Years Used Date Smoking Tobacco: Never Smokeless Tobacco: Never Tobacco Cessation:Counseling Given: Not Answered Alcohol Use Standard Drinks/Week Comments Yes 0 (1 standard drink = 0.6 oz pur e alcohol) Sex and Gender Information Value Date Recorded Sex Assigned at Not on file Gender Identity Not on file Sexual Orientation Not on file Procedures * DERMATOPATHOLOGY(Performed 08/18/2023) Performed for Melanocytic nevi of left upper limb, including shoulder * DERMATOPATHOLOGY(Performed 07/01/2023) Performed for Neoplasm of uncertain behavior of skin * [place] TANGNTL BX SKIN EA SEP ADDL(Performed 06/27/2021) Performed for Neoplasm of uncertain behavior of skin * IL TANGNTL BX SKIN SINGLE LES(Performed 06/27/2021) Performed for Neoplasm of uncertain behavior of skin * DERMATOPATHOLOGY(Performed 06/27/2021) Performed for Neoplasm of uncertain behavior of skin * IL DESTROY PREMALIG LESION, 1ST LESION(Performed 05/06/2020) Performed for Actinic keratosis * CULTURE AEROBIC(Performed 08/03/2013) * DERMATOPATHOLOGY(Performed 07/26/2013) * DERMATOPATHOLOGY(Performed 03/03/2013) * DERMATOPATHOLOGY(Performed 02/02/2013) * DERMATOPATHOLOGY(Performed 02/03/2012) * PATHOLOGY/GENETICS HISTORICAL-ONBASE(Performed 12/18/2009) * LAB HISTORICAL RESULTS-ONBASE(Performed 12/18/2009) * PATHOLOGY/GENETICS HISTORICAL-ONBASE(Performed 07/30/2008) * PATHOLOGY/GENETICS HISTORICAL-ONBASE(Performed 12/27/2006) * PATHOLOGY/GENETICS HISTORICAL-ONBASE(Performed 01/21/2006) Results * DERMATOPATHOLOGY (08/18/2023 3:33 AM CDT) Only the most recent of7 resultswithin the time period is included. Case Report Dermatopathology Report Case: [id number] Authorizing Provider: Deepa Weber MD Collected: 08/18/2023 03:33 AM Ordering Location: [facility] - Received: 08/19/2023 01:42 PM DermPath Lab Pathologist: Laverne Johnson MD Specimen: Skin, left anterior distal upper arm 12:46 PM CDT DERMATOPATHOLOGY LABORATORY Final Diagnosis Specimen A. SKIN, left anterior distal upper arm: DERMAL SCAR RESIDUAL MELANOCYTIC PROLIFERATION NOT IDENTIFIED (L90.5) 12:46 PM CDT DERMATOPATHOLOGY LABORATORY Clinical History Atypical nevus. Check Margins 12:46 PM CDT DERMATOPATHOLOGY LABORATORY Gross Description Specimen A: Received is one formalin filled container labeled with the patient's name and designated left anterior distal upper arm. The specimen consists of a piece of skin measuring [id number] mm. The margin is inked green. The specimen is bisected lengthwise and submitted in 1 cassette. Jar 0. 12:46 PM CDT DERMATOPATHOLOGY LABORATORY Microscopic Description Specimen A. SKIN, left anterior distal upper arm: There are fibroblasts and collagen bundles oriented parallel to the skin surface. There are elongated blood vessels, some of which are oriented perpendicular to the skin surface. No residual melanocytic proliferation is identified. 12:46 PM CDT DERMATOPATHOLOGY LABORATORY Disclaimer An external and internal positive and negative controls are appropriate for the histochemical, immunohistochemical and immunofluorescence stain(s) in this case (if any), except where stated explicitly. The performance characteristics of the stain(s) cited in this report were developed and its performance characteristic determined by the Dermatopathology Laboratory at [facility], directed by Dr. Carmen Bolivar. These tests need not be, and therefore are not, approved by the [place] Food and Drug Administration. The tests are used for clinical purposes. Billing Codes Specimen Charges Stain Charges 87247 1 12:46 PM CDT DERMATOPATHOLOGY LABORATORY Embedded Images 12:46 PM CDT DERMATOPATHOLOGY LABORATORY Pathology/Cytolo gy TISSUE SPECIMEN FROM SKIN / Unknown 08/18/2023 3:33 AM CDT 08/19/2023 1:42 PM CDT Deepa Weber MD LAB - PATHOLOGY/CYTO LOGY ORDERABLES DERMATOPATHOLOGY LABORATORY [facility] - Department of Dermatology [address], [address] [phone] * IL TANGNTL BX SKIN SINGLE LES, [place] TANGNTL BX SKIN EA SEP ADDL (06/27/2021 3:39 PM SENIOR POLICY ANALYST) Emilie White MD - 06/27/2021 3:39 PM SENIOR POLICY ANALYST Emilie El MD 06/27/2021 3:40 PM Risks, benefits and alternatives to shave biopsy were discussed with the patient. Verbal consent was obtained. Encounter Diagnoses Name Primary? Lentigines Seborrheic keratosis Multiple nevi Other seborrheic dermatitis History of melanoma Neoplasm of uncertain behavior of skin Yes Hyperkeratosis Location: L arm, L upper abdomen superior and inferior Skin prep: Alcohol Anesthesia: 1% lidocaine with epinephrine Hemostasis: Aluminum chloride Dressing and wound care discussed. Specimen(s) placed in a patient labeled container and sent to [facility] Dermat[facility]. Patient agrees to phone call for results and message if not available. Emilie El MD Emilie El MD PROCEDURE/YARELIS R SURGICAL ORDERABLES * IL DESTROY PREMALIG LESION, 1ST LESION (05/06/2020 11:47 AM SENIOR POLICY ANALYST) Emilie White MD - 05/06/2020 11:47 AM SENIOR POLICY ANALYST Wayne Gonzales MD 05/06/2020 11:47 AM Diagnosis and treatment options discussed. Cryotherapy (Liquid Nitrogen) to 1 AK R oral commisure x 5-6 seconds each. Number of cycles: 1. Wound care reviewed. Emilie El MD PROCEDURE/YARELIS R SURGICAL ORDERABLES * (ABNORMAL) CULTURE AEROBIC (08/03/2013 1:49 PM CDT) Culture SEE NOTE(A) [facility] ([facility]) Comment: CULTURE, AEROBIC BACTERIA MICRO NUMBER: [id number] TEST STATUS: FINAL SPECIMEN SOURCE: LESION SPECIMEN QUALITY: ADEQUATE RESULT: Light growth of Pseudomonas aeruginosa COMMENT: Skin sachin also present. Ps.aeruginosa INT ARMIN AMIKACIN S <=16 CEFEPIME S <=4 CEFTAZIDIME S 4 CIPROFLOXACIN S <=1 GENTAMICIN S <=4 IMIPENEM S <=1 LEVOFLOXACIN S <=2 MEROPENEM S <=1 PIP/TAZOBACTAM S <=16 TOBRAMYCIN S <=4 S=Susceptible I=Intermediate R=Resistant * = Not Tested NR = Not Reported NN = See Therapy Comments REPORT COMMENT: LEFT CHEST SPECIMEN TYPE->LESION Test Performed at: [facility] [phone] JOYCELYN CLEVELAND MD Lesion MISCELLANEOUS SAMPLES / Unknown 08/03/2013 1:49 PM CDT 08/03/2013 9:50 PM CDT Narrative [facility] ([facility]) - 08/06/2013 10:00 AM CDT Left chest Specimen Type->Lesion Niurka Solis MD LAB - MICROBIOLOGY O RDERAANDRES Performing Organization Address [facility] Co de Phone Number [employer] [facility]) * PATHOLOGY/GENETICS HISTORICAL-ONBASE (12/18/2009) Only the most recent of4 resultswithin the time period is included. 12/18/2009 Historical Provider LAB - CHEMISTRY O BUDDY Performing Organization Address [facility]/ZIP Co de Phone Number [facility] * LAB HISTORICAL RESULTS-ONBASE (12/18/2009) 12/18/2009 Historical Provider LAB - CHEMISTRY O BUDDY Performing Organization Address [facility] Co de Phone Number [facility]
--- OUTSIDE RECORDS SUMMARY | 2024-07-20 15:56 | XMS_ITS | Encounter Summary ---
Author Organization [facility] Address [address] [facility] [address] [place] [address] Care Team Providers Care Senior Mobile Application Developer Name Role Phone Unavailable Primary Care Provider Unavailabl e Encounter Details Date Type Department Care Team (Late st Contact Info) Description 08/18/2023 Lab Requisition [facility] - DermPath Lab [address] [place] [id number] Deepa Weber MD [address] [place] [address] [place] [phone] Melanocytic nevi of left upper limb, including shoulder Social History Tobacco Use Types Packs/Day Years Used Date Smoking Tobacco: Never Smokeless Tobacco: Never Alcohol Use Standard Drinks/Week Comments Yes 0 (1 standard drink = 0.6 oz pur e alcohol) Sex and Gender Information Value Date Recorded Sex Assigned at Not on file Gender Identity Not on file Sexual Orientation Not on file documented as of this encounter Plan of Treatment Not on file documented as of this encounter Procedures Procedure Name Priority Date/Time Associated Diagnosis Comments DERMATOPATHOLOGY Routine 08/18/2023 3:33 AM CDT Melanocytic nevi of left upper limb, including shoulder documented in this encounter Results * DERMATOPATHOLOGY (08/18/2023 3:33 AM CDT) Case Report Dermatopathology Report Case: [id number] Authorizing Provider: Deepa Weber MD Collected: 08/18/2023 03:33 AM Ordering Location: [facility] - Received: 08/19/2023 01:42 PM [...] consists of a piece of skin measuring [id number] mm. The margin is inked green. The [...] characteristic determined by the Dermatopathology Laboratory at [facility], directed by Dr. Carmen Bolivar. These tests need not be, and therefore are not, approved by the [place] Food and Drug Administration. The tests are used for clinical purposes. Billing Codes Specimen Charges Stain Charges 29116 1 12:46 PM CDT DERMATOPATHOLOGY LABORATORY Embedded Images 12:46 PM CDT DERMATOPATHOLOGY LABORATORY Pathology/Cytolo gy TISSUE SPECIMEN FROM SKIN / Unknown 08/18/2023 3:33 AM CDT 08/19/2023 1:42 PM CDT Deepa Weber MD LAB - PATHOLOGY/CYTO LOGY ORDERABLES DERMATOPATHOLOGY LABORATORY [facility] - Department of Dermatology [facility] [address] [place] [address], [address] [phone] documented in this encounter Visit Diagnoses Diagnosis Melanocytic nevi of left upper limb, including shoulder documented in this encounter
--- OUTSIDE RECORDS SUMMARY | 2024-07-20 15:56 | XMS_ITS | Clinical Summary ---
Author Organization [facility] Address [address] [place] [address] Care Team Providers Care Spiritual Minister Name Role Phone Unavailable Primary Care Provider Unavailabl e Source Comments [facility],non-owned Affiliates and Associated Physician Practices is amultiple site organization consisting of ambulatory clinics and hospital sitesin [place], [place], [place] and [place]. This disclosure is being madepursuant to the Care Everywhere program and may not contain all information available regarding this patient. Last updated 18.[facility] [employer] Allergies No known active allergies Medications * [...] Administration Dates Next Due INFLUENZA VACCINE 02/13/2021 Family History Medical History Relation Name Comments Hearing Loss Brother Hypertension Father High Cholesterol Mother Hypertension Mother Cancer - Skin, Melanoma Neg Hx Cancer - Skin, Non Melanoma Neg Hx Relation Name Status Comments Brother Father Mother Social History Tobacco Use Types Packs/Day Years [...] Health Maintenance Due Date Last Done Comments BONE DENSITY TESTING 1955 COLON MONITORING 1955 COLONOSCOPY - COLON CA SCREENING [address] CT COLONOGRAPHY - COLON CA SCREENING 1955 FIT - COLON CA SCREENING 1955 FLEX SIG - COLON CA SCREENING 1955 LIPID TESTING 1955 HEPATITIS C SCREENING 10/10/1973 DTAP/TDAP/TD VACCINES (1 - Tdap) 10/14/1974 PNEUMOCOCCAL VACCINE 50+ (1 of 1 - PCV) 10/14/2005 ZOSTER VACCINE (1 of 2) 10/14/2005 MAMMOGRAM 04/09/2017 04/09/2015, 01/31/2013 COVID-19 VACCINE ( - 2023-2 5 season) 2024 INFLUENZA VACCINE (#1) 2024 02/13/2021 DEPRESSION SCREENING 05/17/2024 MEDICARE AWV CALENDAR YEAR 2024 COLOGUARD (AGES 45-75) - COL ON CA SCREENING 11/19/2024 11/19/2021 Colorectal Cancer Screening 11/19/2024 Respiratory Syncytial Virus (RSV) Vaccine Pt: or over 60 yrs (1 - 1-dose 75+ series) 10/14/2030 HEPATITIS B VACCINE Aged Out No longe r eligible based on patient's age to complete this topic HIB VACCINE Aged Out No longer eligi ble based on patient's age to complete this topic HPV VACCINE Aged Out No longer eligi ble based on patient's age to complete this topic MENINGOCOCCAL (Group B) VACCINE Aged Out No longer eligible b ased on patient's age to complete this topic MENINGOCOCCAL VACCINE Aged Out No fan miroslava eligible based on patient's age to complete this topic
--- OUTSIDE RECORDS SUMMARY | 2024-07-20 15:56 | XMS_ITS | Continuity of Care Document ---
Author Organization [facility] Address [address] [place] [address] [address] [place] [address] Phone Care Team Providers Care Plateman Name Role Phone Fiordaliza Moreno Unavailable Unavailable Procedures Procedure Date Office/outpatient Visit, Est Visual Field Examination(s) Office/outpatient Visit, Est Optic Nerve Topography Optic Nerve Topography Office/outpatient Visit, Est Fundus Photography W/ Report Advance Directives Directive Yes / No Effective Date File Name No Information Encounters Encounter Description Practice Location Reason(s) For Visit Diagnoses Date Provider Providers Copied on Encounter Office/outpat ient Visit, [facility], [address] [place] [address] [address], [place], [place], [id number], tel:[phone] [facility] No Information 1 0 Tiffanie Mancera. [address], [place], [address], [place]. tel:[phone] Referring Provider: Fiordaliza Wolf, [address], [place], [place], [facility]. tel:[phone] [facility], [address] [place] [address] [address], [place], [place], [id number], tel:[phone] [facility] No Information 1200 [address] Tiffanie Mancera. [address] , [address], [place], [address], [place]. tel:[phone] Referring Provider: Cat [address], [place], [facility]. tel:[phone] Office/outpat ient Visit, [facility], [address] [place] [address] [address], [place], [place], [id number], tel:[phone] [facility] No Information 0 [address] Tiffanie Mancera. [facility] , [address], [place], [facility], . tel:[phone] [facility], [address] [place] [address] [address], [place], [place], [id number], tel:[phone] [facility] No Information [address] Tiffanie Mancera. [facility] , [address], [place], [facility], . tel:[phone] Referring Provider: Cat Agustin [facility] [address], [place], [facility]. tel:[phone] Office/outpat ient Visit, [facility], [address] [place] [address] [address], [place], [place], [id number], tel:[phone] [facility] No Information 7 Tiffanie Mancera. [facility] [address], [address], [place], [facility], . tel:[phone] Referring Provider: Cat [address], [place], [facility]. tel:[phone] Family History Family Member Type Diagnosis Age At Onset No Information Payers Payer name Insurance type Covered democrat ID Authoriza tion(s) No Information Social History Type Description Quantity Date Captured Comments Sex Female Smoking Status No Information Chief Complaint And Reason For Visit No Information Reason For Referral Reason For Referral No Information History Of Present Illness Encounter Date Complaint History Of Prese nt Illness No Information Functional Status Date Functional Assessmen t No Information Instructions Date Instruction Additional Infor mation No Information Assessments Type Assessment Date No Information Patient Care Teams Name Effective Dates (start - stop) Status Members No Information
--- OUTSIDE RECORDS SUMMARY | 2024-07-20 15:56 | XMS_ITS | Encounter Summary ---
Author Organization [facility] Address [address] [place] [address] [place] [address] Care Team Providers Care Secretarial Stenographer Name Role Phone Unavailable Primary Care Provider Unavailabl e Encounter Details Date Type Department Care Team (Late st Contact Info) Description 07/01/2023 Lab Requisition [facility] - DermPath Lab [address] [place] [id number] Deepa Weber MD [address] [place] [address] [place] [id number] Neoplasm of uncertain behavior of skin Social History Tobacco Use Types Packs/Day Years [...] Priority Date/Time Associated Diagnosis Comments DERMATOPATHOLOGY Routine 07/01/2023 12:0 0 AM [employer] [employer] Neoplasm of uncertain behavior of skin documented in this encounter Results * DERMATOPATHOLOGY (07/01/2023 12:00 AM [facility]) Case Report Dermatopathology Report Case: [id number] Authorizing Provider: Deepa Weber MD Collected: 07/01/2023 12:00 AM Ordering Location: [facility] DermPath Lab Received: 07/02/2023 01:18 PM Pathologist: Sekou Bolivar MD Specimens: A) - Skin, right superior upper back B) - Skin, left anterior distal upper arm 3:13 PM [facility] DERMATOPATHOLOGY LABORATORY Final Diagnosis Specimen A. SKIN, right superior upper back: LENTIGINOUS MELANOCYTIC NEVUS, JUNCTIONAL TYPE, IRRITATED (D22.5) Specimen B. SKIN, left anterior distal upper arm: COMPOUND MELANOCYTIC PROLIFERATION; PRESENT AT MARGIN (D48.5) (see microscopic description and comment) 3:13 PM [facility] DERMATOPATHOLOGY LABORATORY Clinical History A-B: Atypical Nevus 3:13 PM [facility] DERMATOPATHOLOGY LABORATORY Gross Description Specimen A: Received is one formalin filled container labeled with the patient's name and designated right superior upper back. The specimen consists of a shave biopsy measuring 6x5x1 mm. Jar 0. Specimen B: Received is one formalin filled container labeled with the patient's name and designated left anterior distal upper arm. The specimen consists of a shave biopsy measuring 8x6x1 mm. Jar 0. 3:13 PM [facility] DERMATOPATHOLOGY LABORATORY Microscopic Description Specimen A. SKIN, right superior upper back: This is a junctional nevus. There is melanin pigment in the stratum corneum. There is a lentiginous proliferation of melanocytes between nests of cells along the dermal-epidermal junction. There is underlying fibroplasia of the papillary dermis. (Junctional Julio's Nevus) Specimen B. SKIN, left anterior distal upper arm: There is a lentiginous proliferation of nevus cells at the dermal-epidermal junction between focal nests which are highlighted on a MART-1/Melan A. Within the dermis, there are nests of small, monomorphous melanocytes. Above this, there are fibroblasts and collagen bundles oriented parallel to the skin surface consistent with a dermal scar. This lesion is present at the base of the specimen. COMMENT: Because this lesion is present at the margin of the specimen, symmetry and circumscription can not be evaluated. Overall a persistent/recurren t nevus secondary to trauma or a procedure is favored. However, a complete but conservative re-excision is recommended to evaluate this lesion in its entirety. 4 3:13 PM [facility] DERMATOPATHOLOGY LABORATORY Disclaimer An external and internal positive and negative controls are appropriate for the histochemical, immunohistochemical and immunofluorescence stain(s) in this case (if any), except where stated explicitly. The performance characteristics of the stain(s) cited in this report were developed and its performance characteristic determined by the Dermatopathology Laboratory at [facility], directed by Dr. Carmen Bolivar. These tests need not be, and therefore are not, approved by the [place] Food and Drug Administration. The tests are used for clinical purposes. Billing Codes Specimen Charges Stain Charges 25104 74820 1 1 54354 1 4 3:13 PM [facility] DERMATOPATHOLOGY LABORATORY Embedded Images 4 3:13 PM [facility] [facility] DERMATOPATHOLOGY LABORATORY Pathology/Cytology TISSUE SPECIMEN FROM SKIN / Unknown 07/01/2023 07/02/2023 1:18 PM [employer] Miscellaneous samples (specimen) TISSUE SPECIMEN FROM SKIN / Unknown 07/01/2023 07/02/2023 1:19 PM [employer] Deepa Weber MD LAB - PATHOLOGY/CYTO LOGY ORDERABLES DERMATOPATHOLOGY LABORATORY [facility] - Department of Dermatology [facility] [address] [place] [address], [address] [phone] documented in this encounter Visit Diagnoses Diagnosis Neoplasm of uncertain behavior of skin documented in this encounter
--- OUTSIDE RECORDS SUMMARY | 2024-07-20 15:56 | XMS_ITS | Patient Health Record ---
Author Organization [facility] Address [address] [facility] [address] [place] [address] Care Team Providers Care Wash Operator Name Role Phone Ivory Peterson Unavailable [phone] Migration, Provider Unavailable Unavailable Reason For Referral No Information Medications Medication SIG (Take, Route, Frequency, Duration) Notes Start Date End Date Status ALPRAZolam 0.5 MG Oral Ac tive ALPRAZolam 0.25 MG Oral A ctive LORazepam 0.5 MG Oral Act georges Clindamycin Phosphate 1% External Active Social History Sex Assigned At : Social History Observation Description Sex Assigned At Female Encounters Encounter Location Date Provider Diagnosis [facility] [employer] [facility] [address] [facility] [address] [phone] 10/02/2023 Provider Migration [facility] [employer] [place] [address] [facility] [address] [address] 10/03/2023 Provider Migration Plan Of Treatment No Information Insurance Providers Payer Name Payer Address Payer Phone Subscriber Number Group Number Insured Name Patient Relationship to Insured Coverage Start Date Coverage End Date [employer] [address] [place] [phone] [id number] [place] Self - patient is the insured
--- NOTE | 2024-07-21 14:33 | WPDPFTINT ---
PFT Procedure Performed PFT Procedure Performed Plethysmography (Lung Vol) Diffusing Cap (DLCO) Flow Vol Loop Spirometry w/o Bronchodil PFT Interpretation Lung volumes were measured with the body plethysmography method. Lung volumes are unremarkable. Spirometry showed normal expiratory flow rates and a normal FEV1 to FVC ratio of 69%. No post bronchodilator study was conducted. The lung diffusion capacity is within the normal range at 83% predicted. The flow volume loop is unremarkable. Impression: Spirometry, lung volumes, and lung diffusion capacity all within the normal range.
== END 2024-07-20 14:36 | disposition home or self-care (01) ==
PROVIDERS: PCP Nurse Practitioner; Visit Provider Clinical Nurse Specialist
DX: R93.89 Abnormal findings on diagnostic imaging of other specified body structures (principal)
CPT/HCPCS: 94375; 94726; 94729